=== PATIENT | female | born 1980 | race Caucasian/White ===

== ENCOUNTER 2022-03-19 15:36 | Emergency (ER) | payer SELFPAY ==
[2022-03-20 00:47] LABS: SARS-CoV-2 PCR by NAA DETECTED (NotDetected)
== END 2022-03-19 16:38 | disposition home or self-care (01) ==
LOC: ERS 15:36
DX: U07.1 COVID-19 (principal)
CPT/HCPCS: 71045; 99285; U0003; U0005

== ENCOUNTER 2022-11-21 08:41 | Emergency (ER) | payer SELFPAY ==
[2022-11-21] MEDS ORDERED: Ibuprofen 800 MG TAB ONE (10:39)
[2022-11-21 12:49] LABS: #Basophils 0.1 thou/uL (0.0-0.2); #Eosinphils 0.1 thou/uL (0.0-0.7); #Lymphocytes 3.1 thou/uL (1.20-3.40); #Monocytes 0.7 thou/uL (0.11-0.59); %Basophils 0.5 % (0.0-1.0); %Eosinophils 0.9 % (0.0-10.0); %Lymphocytes 31.5 % (21.0-51.0); %Monocytes 6.6 % (0.0-10.0); %Neutrophils 60.4 % (42.0-75.0); Hemoglobin 13.2 g/dL (12.0-16.0); Mean Corpuscular HGB CONC 33.2 g/dL (32.0-36.0); Mean Corpuscular Hemoglobin 32.6 pg (27.0-31.0); Mean Corpuscular Volume 98.1 fl (78.0-98.0); Mean Platelet Volume 7.9 fL (7.4-10.4); Platelet Count 168 10x3/uL (130-400); RBC Distribution Width 12.1 % (11.5-14.5); Red Blood Cell (RBC) Count 4.06 mill/uL (4.20-5.40); White Blood Cell (WBC) Count 9.9 10x3/uL (4.8-10.8)
[2022-11-21 13:03] LABS: ALT (SGPT) 17 U/L (8-55); AST (SGOT) 34 U/L (5-34); Albumin 4.1 g/dL (3.5-5.0); Alkaline Phosphatase 91 U/L (40-110); Anion Gap 11 mmol/L (10-20); BUN (Urea Nitrogen) 20 mg/dL (7.0-18.7); Bilirubin, Total 1.1 mg/dL (0.2-1.2); Calc. Creatinine Clearance 0 mL/min (70-130); Calcium 8.7 mg/dL (7.8-10.44); Carbon Dioxide 21 mmol/L (22-29); Chloride 107 mmol/L (98-107); Estimated GFR 79; Globulin 2.6 g/dL (2.4-3.5); Glucose 108 mg/dL (70-105); Potassium 4.3 mmol/L (3.5-5.1); Protein, Total 6.7 g/dL (6.0-8.3); Sodium 135 mmol/L (136-145)
[2022-11-21 13:04] LABS: Bacteria/HPF 4+ HPF (None Seen); Bilirubin Negative (Negative); Blood, Urine Trace (Negative); Clarity Turbid (Clear); Glucose, Urine (Dipstick) Normal (Negative); Ketone, Urine Trace mg/dL (Negative); Leukocyte 250 Leu/uL (Negative); Nitrite 2+ (Negative); Protein, Urine (Dipstick) 100 mg/dL (Neg-Trace); RBC/HPF 0-3 HPF (0-3); Specific Gravity, Urine 1.038 (1.002-1.036); Squamous Epithelial 0-3 HPF (0-3); Urobilinogen Normal mg/dL (Less than 2)
== END 2022-11-21 13:14 | disposition home or self-care (01) ==
LOC: ERS 08:41
DX: B34.9 Viral infection, unspecified (principal); Z20.822 Contact with and (suspected) exposure to COVID-19
CPT/HCPCS: 36415; 71045; 80053; 81003; 81015; 84484; 85025; 87077; 87086; 87186; 87804; 93005; U0003; U0005

== ENCOUNTER 2022-12-26 14:35 | Inpatient (IN) | payer SELFPAY ==
[~2022-12-26 14:35] MED LIST: Iopamidol-370 76% 500 ML 1 ML ONE
[2022-12-26 15:31] LABS: #Basophils 0.1 thou/uL (0.0-0.2); #Eosinphils 0.1 thou/uL (0.0-0.7); #Lymphocytes 3.3 thou/uL (1.20-3.40); #Monocytes 0.9 thou/uL (0.11-0.59); #Neutrophils 6.8 thou/uL (1.40-6.50); %Basophils 0.8 % (0.0-1.0); %Eosinophils 0.5 % (0.0-10.0); %Lymphocytes 29.1 % (21.0-51.0); %Monocytes 8.2 % (0.0-10.0); %Neutrophils 61.3 % (42.0-75.0); Hemoglobin 15.1 g/dL (12.0-16.0); Mean Corpuscular HGB CONC 32.6 g/dL (32.0-36.0); Mean Corpuscular Hemoglobin 32.6 pg (27.0-31.0); Mean Corpuscular Volume 99.9 fl (78.0-98.0); Mean Platelet Volume 7.4 fL (7.4-10.4); Platelet Count 259 10x3/uL (130-400); RBC Distribution Width 12.7 % (11.5-14.5); Red Blood Cell (RBC) Count 4.64 mill/uL (4.20-5.40); White Blood Cell (WBC) Count 11.1 10x3/uL (4.8-10.8)
[2022-12-26 16:13] LABS: BHCG - Serum Negative (NEGATIVE); Pregs Control Background? CLEAR/WHITE (CLR/WHITE); Pregs Control Bar Appear? YES (CONTROL BAR)
[2022-12-26 16:31] LABS: ALT (SGPT) 15 U/L (8-55); AST (SGOT) 31 U/L (5-34); Acetaminophen Less than 10.0 mcg/mL (10.0-30.0); Alcohol Less than 10 mg/dL (Less than 10); Alkaline Phosphatase 99 U/L (40-110); Anion Gap 12 mmol/L (10-20); BUN (Urea Nitrogen) 15 mg/dL (7.0-18.7); Bilirubin, Total 1.8 mg/dL (0.2-1.2); Calc. Creatinine Clearance 0 mL/min (70-130); Calcium 9.1 mg/dL (7.8-10.44); Carbon Dioxide 23 mmol/L (22-29); Chloride 107 mmol/L (98-107); Estimated GFR 76; Globulin 3.1 g/dL (2.4-3.5); Glucose 105 mg/dL (70-105); Potassium 3.7 mmol/L (3.5-5.1); Protein, Total 7.1 g/dL (6.0-8.3); Salicylate Less than 8.0 mg/dL (15.0-30.0); Sodium 138 mmol/L (136-145)
[2022-12-26 17:04] LABS: SARS-CoV-2 NAA Rapid Test Not Detected (NotDetected)
[2022-12-26 17:05] LABS: Bacteria/HPF 1+ HPF (None Seen); Bilirubin Negative (Negative); Blood, Urine Negative (Negative); Clarity Turbid (Clear); Glucose, Urine (Dipstick) Normal (Negative); Ketone, Urine Negative (Negative); Leukocyte 250 Leu/uL (Negative); Nitrite Negative (Negative); Protein, Urine (Dipstick) Negative (Neg-Trace); RBC/HPF 0-3 HPF (0-3); Specific Gravity, Urine 1.011 (1.002-1.036); Urobilinogen Normal mg/dL (Less than 2); WBC/HPF 0-3 HPF (0-3)
[2022-12-26 17:10] LABS: Amphetamine Detected (NotDetected); Barbiturates Screen Not Detected (NotDetected); Benzodiazepine Screen Not Detected (NotDetected); Cocaine Metabolite Screen Not Detected (NotDetected); Methadone Not Detected (NotDetected); Methamphetamine Detected (NotDetected); Opiate Screen Not Detected (NotDetected); Oxycodone Screen Not Detected (NotDetected); Phencyclidine (PCP) Not Detected (NotDetected); THC/Cannabinoid Screen Not Detected (NotDetected); Tricyclic Screen Not Detected (NotDetected)
[2022-12-26] MEDS ORDERED: Furosemide 40 MG/4 ML VIAL ONE (19:09)
[2022-12-26] MEDS ORDERED: Nitroglycerin 2% Ointment 1 INCH/1 GM Packet ONE (19:09)
[2022-12-26] MEDS ORDERED: Ondansetron ODT 4 MG TAB PO PRN (21:27)
[2022-12-26] MEDS ORDERED: Senokot S 8.6-50 MG TAB PO PRN (21:27)
[2022-12-26] MEDS ORDERED: Ondansetron PF 4 MG/2 ML Vial IVP PRN (21:27)
[2022-12-26] MEDS ORDERED: Metoclopramide HCl 10 MG/2 ML VIAL IVP SCH (21:30)
[2022-12-26] MEDS ORDERED: Metoclopramide HCl 10 MG/2 ML VIAL ONE (21:53)
[2022-12-26] MEDS ORDERED: Acetaminophen 325 MG TAB ONE (21:53)
[2022-12-26] MEDS ORDERED: cefTRIAXone\\ROCEPHIN 1 GM in Sodium Chloride 0.9% 100 ML IVPB SCH (22:00)
[2022-12-26] MEDS: Acetaminophen 325 MG TAB PO PRN (22:00)
[2022-12-26] MEDS ORDERED: cefTRIAXone\\ROCEPHIN 1 GM VIAL ONE (22:31)
[2022-12-26] MEDS ORDERED: Nicotine 14 MG PATCH ONE (22:40)
[2022-12-26] MEDS: Nicotine 14 MG PATCH TD SCH (22:42)
[2022-12-27 00:55] VITALS: BMI 26.6
[2022-12-27 04:27] LABS: #Basophils 0.1 thou/uL (0.0-0.2); #Eosinphils 0.1 thou/uL (0.0-0.7); #Lymphocytes 2.5 thou/uL (1.20-3.40); #Monocytes 0.9 thou/uL (0.11-0.59); #Neutrophils 6.5 thou/uL (1.40-6.50); %Basophils 0.6 % (0.0-1.0); %Eosinophils 0.8 % (0.0-10.0); %Lymphocytes 24.8 % (21.0-51.0); %Monocytes 8.6 % (0.0-10.0); %Neutrophils 65.2 % (42.0-75.0); Hemoglobin 13.4 g/dL (12.0-16.0); Mean Corpuscular HGB CONC 32.8 g/dL (32.0-36.0); Mean Platelet Volume 7.3 fL (7.4-10.4); Platelet Count 221 10x3/uL (130-400); RBC Distribution Width 12.6 % (11.5-14.5); Red Blood Cell (RBC) Count 4.06 mill/uL (4.20-5.40); White Blood Cell (WBC) Count 9.9 10x3/uL (4.8-10.8)
[2022-12-27 04:46] LABS: ALT (SGPT) 13 U/L (8-55); AST (SGOT) 28 U/L (5-34); Albumin 3.6 g/dL (3.5-5.0); Alkaline Phosphatase 89 U/L (40-110); Anion Gap 14 mmol/L (10-20); BUN (Urea Nitrogen) 15 mg/dL (7.0-18.7); Bilirubin, Total 1.5 mg/dL (0.2-1.2); Calc. Creatinine Clearance 82 mL/min (70-130); Calcium 8.6 mg/dL (7.8-10.44); Carbon Dioxide 21 mmol/L (22-29); Chloride 102 mmol/L (98-107); Estimated GFR 72; Globulin 2.9 g/dL (2.4-3.5); Glucose 163 mg/dL (70-105); Potassium 3.2 mmol/L (3.5-5.1); Protein, Total 6.5 g/dL (6.0-8.3); Sodium 134 mmol/L (136-145)
[2022-12-27] MEDS: Acetaminophen 325 MG TAB PO PRN (06:06)
[2022-12-27] MEDS ORDERED: Potassium Chloride 20 MEQ TAB PO SCH (07:45)
[2022-12-27] MEDS ORDERED: Lisinopril 2.5 MG TAB PO SCH (09:00)
[2022-12-27] MEDS: Famotidine 20 MG TAB PO SCH ×2 (09:45→20:29)
[2022-12-27] MEDS: Aspirin Chewable 81 MG TAB PO SCH (09:45)
[2022-12-27] MEDS: Melatonin 3 MG TAB PO PRN (22:01)
[2022-12-27] MEDS: Nicotine 14 MG PATCH TD SCH (22:01)
[2022-12-28 04:37] LABS: #Basophils 0.1 thou/uL (0.0-0.2); #Eosinphils 0.1 thou/uL (0.0-0.7); #Lymphocytes 3.3 thou/uL (1.20-3.40); #Monocytes 0.8 thou/uL (0.11-0.59); #Neutrophils 4.5 thou/uL (1.40-6.50); %Basophils 0.7 % (0.0-1.0); %Eosinophils 1.7 % (0.0-10.0); %Lymphocytes 37.4 % (21.0-51.0); %Monocytes 8.8 % (0.0-10.0); %Neutrophils 51.4 % (42.0-75.0); Hemoglobin 15.3 g/dL (12.0-16.0); Mean Corpuscular HGB CONC 32.5 g/dL (32.0-36.0); Mean Platelet Volume 7.7 fL (7.4-10.4); Platelet Count 228 10x3/uL (130-400); RBC Distribution Width 12.8 % (11.5-14.5); Red Blood Cell (RBC) Count 4.64 mill/uL (4.20-5.40); White Blood Cell (WBC) Count 8.8 10x3/uL (4.8-10.8)
[2022-12-28 04:59] LABS: Anion Gap 12 mmol/L (10-20); BUN (Urea Nitrogen) 21 mg/dL (7.0-18.7); Calc. Creatinine Clearance 86 mL/min (70-130); Calcium 8.8 mg/dL (7.8-10.44); Carbon Dioxide 27 mmol/L (22-29); Chloride 103 mmol/L (98-107); Estimated GFR 76; Glucose 103 mg/dL (70-105); Magnesium 2.1 mg/dL (1.6-2.6); Potassium 4.6 mmol/L (3.5-5.1); Sodium 137 mmol/L (136-145)
[2022-12-28] MEDS ORDERED: Nitroglycerin 100MG/250ML BOT 0 ML ONE (06:28)
[2022-12-28] MEDS ORDERED: Lidocaine 1% (PF) 30 ML VIAL ONE (06:28)
[2022-12-28] MEDS ORDERED: Heparin 10,000 UNITS/ 10 ML VIAL ONE (06:28)
[2022-12-28] MEDS ORDERED: Adenosine 6 MG/2 ML VIAL ONE (06:28)
[2022-12-28] MEDS ORDERED: FENTANYL 50 MCG/ML 1 ML VIAL ONE (07:00)
[2022-12-28] MEDS ORDERED: Midazolam HCl 2 mg/2 ml Vial ONE (07:00)
[2022-12-28 08:06] LABS: Actual Bicarbonate (HCO3v) 25 mEq/L (22-28); Base Excess -0.5 mEq/L (-2.0 to +3.0); Calcium, Ionized (venous) 1.11 mmol/L (1.16-1.32); Chloride (VBG) 105 mmol/L (98-106); Hemoglobin (Hb) 14.9 g/dL (11.7-15.5); Potassium (VBG) 4.36 mmol/L (3.70-5.30); Sodium 136.3 mmol/L (133-146); pH (venous) 7.38 (7.32-7.43)
[2022-12-28 08:07] LABS: Actual Bicarbonate (HCO3v) 25 mEq/L (22-28); Base Excess -0.3 mEq/L (-2.0 to +3.0); Base Excess -0.7 mEq/L (-2.0 to +3.0); Calcium, Ionized (venous) 1.07 mmol/L (1.16-1.32); Calcium, Ionized (venous) 1.12 mmol/L (1.16-1.32); Chloride (VBG) 104 mmol/L (98-106); Chloride (VBG) 105 mmol/L (98-106); Hemoglobin (Hb) 14.8 g/dL (11.7-15.5); Potassium (VBG) 4.35 mmol/L (3.70-5.30); Sodium 135.6 mmol/L (133-146); Sodium 136.5 mmol/L (133-146); pH (venous) 7.38 (7.32-7.43); pH (venous) 7.39 (7.32-7.43)
[2022-12-28] MEDS ORDERED: Nitroglycerin 0.4 MG TAB (25 Tab Bottle) SL PRN (08:16)
[2022-12-28] MEDS ORDERED: Acetaminophen/Codeine 30-300mg Tablet PO PRN (08:16)
[2022-12-28] MEDS ORDERED: Sodium Chloride 0.9% 200 ML IV PRN (08:16)
[2022-12-28] MEDS ORDERED: Sodium Chloride 0.9% 1,000 ML IV SCH (08:30)
[2022-12-28] MEDS: Acetaminophen/Codeine 30-300mg Tablet PO PRN ×2 (09:33→13:54)
[2022-12-28] MEDS: Flecainide 50 MG TAB PO SCH ×2 (09:34→20:48)
[2022-12-28] MEDS: Aspirin Chewable 81 MG TAB PO SCH (09:34)
[2022-12-28] MEDS: Famotidine 20 MG TAB PO SCH ×2 (09:34→20:48)
[2022-12-28] MEDS ORDERED: Lidocaine 5% Patch TD SCH ×2 (11:21→12:15)
[2022-12-28] MEDS ORDERED: Iopamidol 370 76% 100 ML VIAL ONE (12:22)
[2022-12-28] MEDS ORDERED: Sildenafil Citrate 20 MG TAB PO SCH (13:15)
[2022-12-28 16:25] VITALS: BP 120/74
[2022-12-28] MEDS ORDERED: HYDROmorphone 2 MG TAB PO PRN (17:58)
[2022-12-28] MEDS: Melatonin 3 MG TAB PO PRN (20:48)
[2022-12-28] MEDS: Nicotine 14 MG PATCH TD SCH (20:49)
[2022-12-28] MEDS: Transdermal Patch Removal TOP SCH (20:52)
[2022-12-29] MEDS: Acetaminophen/Codeine 30-300mg Tablet PO PRN ×4 (03:11→20:19)
[2022-12-29 04:29] LABS: #Basophils 0.1 thou/uL (0.0-0.2); #Eosinphils 0.2 thou/uL (0.0-0.7); #Lymphocytes 3.4 thou/uL (1.20-3.40); #Monocytes 0.6 thou/uL (0.11-0.59); #Neutrophils 4.4 thou/uL (1.40-6.50); %Basophils 1.1 % (0.0-1.0); %Eosinophils 2.3 % (0.0-10.0); %Lymphocytes 39.1 % (21.0-51.0); %Monocytes 7.4 % (0.0-10.0); %Neutrophils 50.1 % (42.0-75.0); Hemoglobin 13.9 g/dL (12.0-16.0); Mean Corpuscular HGB CONC 32.5 g/dL (32.0-36.0); Mean Corpuscular Hemoglobin 33.1 pg (27.0-31.0); Mean Platelet Volume 7.9 fL (7.4-10.4); Platelet Count 205 10x3/uL (130-400); RBC Distribution Width 12.7 % (11.5-14.5); Red Blood Cell (RBC) Count 4.19 mill/uL (4.20-5.40); White Blood Cell (WBC) Count 8.7 10x3/uL (4.8-10.8)
[2022-12-29 04:48] LABS: Anion Gap 11 mmol/L (10-20); BUN (Urea Nitrogen) 18 mg/dL (7.0-18.7); Calc. Creatinine Clearance 94 mL/min (70-130); Calcium 8.4 mg/dL (7.8-10.44); Carbon Dioxide 21 mmol/L (22-29); Chloride 108 mmol/L (98-107); Estimated GFR 86; Glucose 120 mg/dL (70-105); Magnesium 2.1 mg/dL (1.6-2.6); Potassium 4.2 mmol/L (3.5-5.1); Sodium 136 mmol/L (136-145)
[2022-12-29] MEDS ORDERED: Lidocaine 5% Patch TD SCH (09:00)
[2022-12-29] MEDS ORDERED: Sildenafil Citrate 20 MG TAB PO SCH (09:00)
[2022-12-29] MEDS: Aspirin Chewable 81 MG TAB PO SCH (09:19)
[2022-12-29] MEDS: Famotidine 20 MG TAB PO SCH ×2 (09:20→20:20)
[2022-12-29] MEDS: Flecainide 50 MG TAB PO SCH ×2 (09:20→20:20)
[2022-12-29] MEDS: Sildenafil Citrate 20 MG TAB PO SCH (09:39)
[2022-12-29] MEDS: Lidocaine 5% Patch TD SCH (11:15)
[2022-12-29] MEDS: Transdermal Patch Removal TOP SCH (20:21)
[2022-12-29] MEDS: Nicotine 14 MG PATCH TD SCH (22:32)
[2022-12-30 05:42] LABS: #Basophils 0.1 thou/uL (0.0-0.2); #Eosinphils 0.2 thou/uL (0.0-0.7); #Lymphocytes 3.4 thou/uL (1.20-3.40); #Monocytes 0.6 thou/uL (0.11-0.59); #Neutrophils 3.9 thou/uL (1.40-6.50); %Basophils 1.1 % (0.0-1.0); %Eosinophils 1.8 % (0.0-10.0); %Lymphocytes 41.1 % (21.0-51.0); %Monocytes 7.6 % (0.0-10.0); %Neutrophils 48.3 % (42.0-75.0); Hemoglobin 13.6 g/dL (12.0-16.0); Mean Corpuscular HGB CONC 32.6 g/dL (32.0-36.0); Mean Platelet Volume 7.7 fL (7.4-10.4); Platelet Count 206 10x3/uL (130-400); RBC Distribution Width 12.6 % (11.5-14.5); Red Blood Cell (RBC) Count 4.12 mill/uL (4.20-5.40); White Blood Cell (WBC) Count 8.2 10x3/uL (4.8-10.8)
[2022-12-30 06:05] LABS: Anion Gap 12 mmol/L (10-20); BUN (Urea Nitrogen) 17 mg/dL (7.0-18.7); Calc. Creatinine Clearance 105 mL/min (70-130); Calcium 8.5 mg/dL (7.8-10.44); Carbon Dioxide 20 mmol/L (22-29); Chloride 107 mmol/L (98-107); Estimated GFR 94; Glucose 108 mg/dL (70-105); Potassium 4.3 mmol/L (3.5-5.1); Sodium 135 mmol/L (136-145)
[2022-12-30] MEDS: Flecainide 50 MG TAB PO SCH (09:49)
[2022-12-30] MEDS: Sildenafil Citrate 20 MG TAB PO SCH (09:49)
[2022-12-30] MEDS: Famotidine 20 MG TAB PO SCH (09:49)
[2022-12-30] MEDS: Aspirin Chewable 81 MG TAB PO SCH (09:49)
[2022-12-30 16:55] VITALS: TEMP 98
[2022-12-30] MEDS: Lidocaine 5% Patch TD SCH (17:25)
[2022-12-30] MEDS ORDERED: predniSONE 20 MG TAB PO SCH (17:45)
[2022-12-31] MEDS ORDERED: predniSONE 20 MG TAB PO SCH (08:00)
== END 2022-12-30 17:46 | disposition home or self-care (01) | DRG 917 ==
LOC: ERS 14:35 → ERHOLD 19:29 → 2NO 12-27 00:47 → IMCU/EMU 12-28 19:26
PROVIDERS: ADMIT Internal Medicine; ATTEND Internal Medicine
PROC: 4A023N8 Measurement of Cardiac Sampling and Pressure, Bilateral, Percutaneous Approach (ICD-10-PCS; principal; 2022-12-28)
PROC: B2111ZZ Fluoroscopy of Multiple Coronary Arteries using Low Osmolar Contrast (ICD-10-PCS; 2022-12-28)
PROC: B2161ZZ Fluoroscopy of Right and Left Heart using Low Osmolar Contrast (ICD-10-PCS; 2022-12-28)
DX: T43.651A Poisoning by methamphetamines accidental (unintentional), initial encounter (principal); J96.01 Acute respiratory failure with hypoxia; I27.21 Secondary pulmonary arterial hypertension; Z20.822 Contact with and (suspected) exposure to COVID-19; F15.10 Other stimulant abuse, uncomplicated; R90.89 Other abnormal findings on diagnostic imaging of central nervous system; E80.6 Other disorders of bilirubin metabolism; G35 Multiple sclerosis; E87.6 Hypokalemia; I07.1 Rheumatic tricuspid insufficiency; F17.210 Nicotine dependence, cigarettes, uncomplicated; H43.811 Vitreous degeneration, right eye; Z90.49 Acquired absence of other specified parts of digestive tract; Z98.51 Tubal ligation status; Z82.49 Family history of ischemic heart disease and other diseases of the circulatory system; Z71.51 Drug abuse counseling and surveillance of drug abuser; Z71.6 Tobacco abuse counseling
CPT/HCPCS: 36415; 36416; 70450; 70551; 70552; 71045; 71275; 80048; 80053; 80306; 80307; 81003; 81015; 82805; 83735; 83880; 84443; 84484; 84703; 85025; 85379; 85652; 86140; 93005; 93306; 93460; 94760; 96374; 99156; 99157; C1751; C1769; C1894; J0153; J0696; J1644; J1650; J1940; J2001; J2250; J2405; J2765; J3010; J3490; J7050; Q0162; Q9967

== ENCOUNTER 2024-09-07 15:44 | Emergency (ER) | payer SELFPAY | END 2024-09-07 17:33 | disposition home or self-care (01) | LOC: ERS 15:44 | DX: J06.9 Acute upper respiratory infection, unspecified (principal); I27.20 Pulmonary hypertension, unspecified; Z87.891 Personal history of nicotine dependence | CPT/HCPCS: 71046; 87428 ==

== ENCOUNTER 2024-09-09 13:05 | Emergency (ER) | payer SELFPAY ==
[2024-09-09] MEDS ORDERED: Ondansetron ODT 4 MG TAB ONE (15:08)
[2024-09-09] MEDS ORDERED: Acetaminophen 500 MG TAB ONE (15:08)
[2024-09-09] MEDS ORDERED: Ketorolac Tromethamine 30 MG (1 mL) VIAL ONE (16:45)
[2024-09-09 17:09] LABS: #Basophils 0.05 10x3/uL (0.0-0.2); %Basophils 0.6 % (0.0-1.0); %Lymphocytes 26.1 % (21.0-51.0); %Monocytes 6.4 % (0.0-10.0); %Neutrophils 63.4 % (42.0-75.0); Hematocrit 42.5 % (36.0-47.0); Mean Corpuscular HGB CONC 32.9 g/dL (32.0-36.0); Mean Corpuscular Hemoglobin 31.7 pg (27.0-31.0); Mean Corpuscular Volume 96.4 fL (78.0-98.0); Mean Platelet Volume 9.4 fL (7.4-10.4); Platelet Count 210 10x3/uL (130-400); RBC Distribution Width 13.9 % (11.5-14.5); Red Blood Cell (RBC) Count 4.41 mill/uL (4.20-5.40)
[2024-09-09 17:27] LABS: ALT (SGPT) 5 U/L (8-55); AST (SGOT) 16 U/L (5-34); Albumin 3.9 g/dL (3.5-5.0); Alkaline Phosphatase 84 U/L (40-110); Anion Gap 14 mmol/L (10-20); BUN (Urea Nitrogen) 7 mg/dL (7.0-18.7); Bilirubin, Total 0.4 mg/dL (0.2-1.2); Calc. Creatinine Clearance 0 mL/min (70-130); Calcium 8.8 mg/dL (7.8-10.44); Carbon Dioxide 22 mmol/L (22-29); Chloride 106 mmol/L (98-107); Estimated GFR 100; Globulin 3.7 g/dL (2.4-3.5); Glucose 100 mg/dL (70-105); Potassium 4.2 mmol/L (3.5-5.1); Protein, Total 7.6 g/dL (6.0-8.3); Sodium 138 mmol/L (136-145)
[2024-09-09 17:29] LABS: Troponin I Less than 0.010 ng/mL (< 0.028)
[2024-09-09 17:51] LABS: Bacteria/HPF None Seen HPF (None Seen); Bilirubin Negative (Negative); Blood, Urine 1+ (Negative); CAUTI Indications for Culture Immunosuppressed; Clarity Extra Turbid (Clear); Glucose, Urine (Dipstick) Normal (Negative); Ketone, Urine 40 mg/dL (Negative); Leukocyte 500 Leu/uL (Negative); Nitrite Negative (Negative); Protein, Urine (Dipstick) 50 mg/dL (Neg-Trace); Squamous Epithelial Greater than 50 HPF (0-3); Urobilinogen Normal mg/dL (Less than 2); WBC/HPF Greater than 50 HPF (0-3)
[2024-09-09 17:54] LABS: Urine Culture Reflex Yes Yes
== END 2024-09-09 18:23 | disposition home or self-care (01) ==
LOC: ERS 13:05 → SJX 13:05
DX: N39.0 Urinary tract infection, site not specified (principal); Z87.891 Personal history of nicotine dependence
CPT/HCPCS: 80053; 81001; 83880; 84484; 85025; 87077; 87081; 87086; 87428; 87430; 87480; 87510; 87660; 93005; 96372; 99284; J1885; Q0162